=== PATIENT | male | born 1990 | race Two or more races ===

== ENCOUNTER 2019-07-03 01:32 | Emergency (ER) | payer MEDICAID ==
[~2019-07-03] VITALS: Ht 172.7 cm; Wt 104.3 kg
[2019-07-03 01:56] VITALS: BP 125/83
== END 2019-07-03 01:59 ==
LOC: ER 01:34
DX: T65.891A Toxic effect of other specified substances, accidental (unintentional), initial encounter (principal); F17.210 Nicotine dependence, cigarettes, uncomplicated; E78.00 Pure hypercholesterolemia, unspecified; Y92.89 Other specified places as the place of occurrence of the external cause